=== PATIENT | male | born 1955 | race Hispanic/Latino ===

== ENCOUNTER 2024-08-21 13:48 | Emergency (ER) | payer MEDICARE ==
[~2024-08-21] VITALS: Ht 170.2 cm; Wt 102.5 kg
[2024-08-21 14:05] VITALS: PULSE 84; RESP 16; TEMP 98.6; O2SAT 100
[2024-08-21] MEDS ORDERED: MEDROL4 M2 PO (15:41)
== END 2024-08-21 15:50 | disposition home or self-care (01) ==
LOC: ER 14:05
DX: M25.511 Pain in right shoulder (principal); R51.9 Headache, unspecified; W19.XXXD Unspecified fall, subsequent encounter; E78.5 Hyperlipidemia, unspecified; Z79.01 Long term (current) use of anticoagulants
CPT/HCPCS: 99283